=== PATIENT | female | born 1975 | race American Indian/Alaskan Native ===

== ENCOUNTER 2017-12-19 17:43 | Emergency (ER) | payer OTHER ==
[2017-12-19 17:52] VITALS: BP 128/87; PULSE 72; RESP 16; TEMP 98.7; O2SAT 97
[2017-12-19] MEDS ORDERED: Lactated Ringer's 1,000 ML IV STA (18:34)
[2017-12-19] MEDS ORDERED: Dextrose 5%/Lactated Ringer's 1,000 ML IV SCH ×2 (18:45→22:34)
[2017-12-19] MEDS ORDERED: Famotidine 20mg/50ml 20 MG/50 ML BAG IVPB ONE (19:00)
[2017-12-19 19:05] LABS: BASO % 0.4 % (0.0-2.0); EOS # 0.1 K/uL (0.0-0.7); EOS % 1.2 % (0.0-4.0); HEMOGLOBIN 12.7 g/dL (12.0-16.0); LYMPH # 1.4 K/uL (1.0-4.3); LYMPH % 17.8 % (20.0-40.0); MEAN CELL VOLUME 93.5 fl (81.0-99.0); MEAN CORPUSCULAR HEMOGLOBIN 31.4 pg (27.0-31.0); MEAN CORPUSCULAR HGB CONC 33.6 g/dL (33.0-37.0); MEAN PLATELET VOLUME 8.4 fl (7.2-11.7); MONO # 0.4 K/uL (0.0-0.8); MONO % 5.5 % (0.0-10.0); NEUT % 75.1 % (50.0-75.0); NRBC % 0.1 % (0.0-0.0); RBC 4.05 Mil/uL (3.80-5.20); RED CELL DISTRIBUTION WIDTH 13.6 % (11.5-14.5)
[2017-12-19 19:10] LABS: ALB/GLOB RATIO 1.1 (1.0-2.1); ALT/SGPT 29 U/L (9-52); AST/SGOT 18 U/L (14-36); BLOOD UREA NITROGEN 11 mg/dl (7-17); CALCIUM 9.6 mg/dL (8.4-10.2); GFR AFRICAN-AMERICAN > 60; GFR NON-AFRICAN AMERICAN > 60; LIPASE 53 U/L (23-300)
--- NOTE | 2017-12-19 19:21 | ED PDOC ---
HPI:Nausea, Vomiting, Diarrhea Time Seen by Provider: 12/19/17 18:16 Chief Complaint (Nursing): Abdominal Pain Chief Complaint (Provider): Vomiting History Per: Patient History/Exam Limitations: no limitations Onset/Duration Of Symptoms: Persistent (2 weeks) Associated Symptoms: Vomiting. denies: Diarrhea, Urinary Symptoms Additional History Per: Patient Additional Complaint(s): 42yo female, currently 8w5d , G1 s/p IVF and embryo implantation, presents to ER with complaints of vomiting for the past 2 weeks, progressively worsening. Patient states she now has intractable vomiting for the past 2 days; she was evaluated by Dr. Brenda López and given Zofran which she is taking with Unisom with no relief of symptoms. She states the emesis is non-bloody and non- bilious. She reports a diffuse abdominal pain, described as cramping but not like contractions. She also reports a headache yesterday with generalized malaise, weakness and bodyaches. Patient denies any vaginal discharge or bleeding, hematuria, dysuria. She states she called her PMD and was informed to present to the ER for further evaluation. Patient has no other medical complaints. Abnormal Vaginal Bleeding: No : 1 Past Medical History Reviewed: Historical Data, Nursing Documentation, Vital Signs Vital Signs: Last Vital Signs Temp 98.7 F 12/19/17 17:48 Pulse 72 12/19/17 17:48 Resp 16 12/19/17 17:48 BP 128/87 12/19/17 17:48 Pulse Ox 97 12/19/17 17:48 - Medical History PMH: Kidney Stones Other PMH: Fibroids - Surgical History Other surgeries: splenic cyst removal - Family History Family History: States: Diabetes, Other Other Family History: cancer - Living Arrangements Living Arrangements: With Family - Social History Current smoker - smoking cessation education provided: No Alcohol: None Drugs: Denies - Home Medications Home Medications: Ambulatory Orders Medication Instructions Recorded Doxylamine/Pyridoxine HCl (B6) 1 each PO DAILY PRN #20 tablet. 12/19/17 [Joslyn Powell 10-10 mg Tablet] Metoclopramide [Reglan] 1 tab PO TID PRN #30 tab 12/19/17 - Allergies Allergies/Adverse Reactions: Allergies Allergy/AdvReac Type Severity Reaction Status Date / Time monosodium glutamate Allergy SWELLING Verified 12/19/17 17:52 Review of Systems ROS Statement: Except As Marked, All Systems Reviewed And Found Negative (as per HPI) Constitutional: Positive for: Malaise. Negative for: Fever, Chills Gastrointestinal: Positive for: Nausea, Vomiting, Abdominal Pain (diffuse, cramping like ). Negative for: Hematemesis Genitourinary Female: Negative for: Dysuria, Hematuria, Vaginal Discharge, Vaginal Bleeding Neurological: Positive for: Headache Physical Exam - Reviewed Nursing Documentation Reviewed: Yes Vital Signs Reviewed: Yes - Physical Exam Appears: Positive for: Uncomfortable, In Acute Distress (GI distress) Head Exam: Positive for: ATRAUMATIC, NORMAL INSPECTION, NORMOCEPHALIC Eye Exam: Positive for: EOMI, PERRL ENT: Positive for: Pharynx Is (clear), Other (tacky mucus membrances) Neck: Positive for: Normal, Supple Cardiovascular/Chest: Positive for: Regular Rate, Rhythm. Negative for: Murmur Respiratory: Positive for: Normal Breath Sounds. Negative for: Respiratory Distress Gastrointestinal/Abdominal: Positive for: Soft, Tenderness (diffuse abdominal tenderness; no pelvic tenderness). Negative for: Mass, Guarding, Rebound Back: Positive for: Normal Inspection. Negative for: Decreased ROM Extremity: Positive for: Normal ROM. Negative for: Deformity Lymphatic: Negative for: Adenopathy Neurologic/Psych: Positive for: Alert. Negative for: Motor/Sensory Deficits - Laboratory Results Result Diagrams: 12/19/17 18:48 12/19/17 18:48 - ECG O2 Sat by Pulse Oximetry: 97 (RA) Pulse Ox Interpretation: Normal Medical Decision Making Medical Decision Making: Impression: Hyperemesis gravidarum Plan: -- D5% LR 1L IV -- Labs -- Pepcid 20mg IVP -- Reglan 10mg IVP Ketones in dip. BLoodwork with no clinically significant abnormalities 8p Pt reports continued nausea. IV Zofran ordered. 11p s/p IVF, IV Reglan, IV Pepcid, IV zofran. Pt feels better. Tolerating fluids in ER. Stable for dc. Scribe Attestation: Documented by Torrie Nichole, acting as a scribe for Stacia Fink MD Provider Scribe Attestation: All medical record entries made by the Scribe were at my direction and personally dictated by me. I have reviewed the chart and agree that the record accurately reflects my personal performance of the history, physical exam, medical decision making, and the department course for this patient. I have also personally directed, reviewed, and agree with the discharge instructions and disposition. Disposition - Clinical Impression Clinical Impression: Hyperemesis gravidarum Counseled Patient/Family Regarding: Studies Performed, Diagnosis, Need For Followup, Rx Given - Disposition Disposition: Routine/Home Disposition Time: 23:15 Condition: IMPROVED Additional Instructions: START DICLEGIS SOON POSSIBLE. FOLLOW INSTRUCTIONS CAREFULLY. TAKE REGLAN NEEDED. TRY TO SEE YOUR DOCTOR TOMORROW OR BY SATURDAY FOR REEVALUATION Prescriptions: Doxylamine/Pyridoxine HCl (B6) [Joslyn Powell 10-10 mg Tablet] 1 each PO DAILY PRN #20 tablet. PRN Reason: Nausea/Vomiting Metoclopramide [Reglan] 1 tab PO TID PRN #30 tab PRN Reason: Nausea/Vomiting Instructions: Hyperemesis Gravidarum Forms: [facility] ED School/Work Excuse
[2017-12-23 17:52] LABS: BETA-HYDROXYBUTYRIC ACID 31 mcg/mL
== END 2017-12-20 02:27 | disposition home or self-care (01) ==
LOC: H.ER 17:43
DX: O21.0 Mild hyperemesis gravidarum (principal)
CPT/HCPCS: 80053; 81025; 82010; 83690; 83735; 84100; 84702; 85025; 96374; 96375; 99283; J2405; J2765; J7120